=== PATIENT | male | born 1970 | race Hispanic/Latino ===

== ENCOUNTER 2017-08-18 15:01 | Emergency (ER) | payer OTHER, SELFPAY ==
[2017-08-18 15:23] LABS: #Eosinphils 0.4 thou/uL (0.0-0.7); #Lymphocytes 1.1 thou/uL (1.20-3.40); #Monocytes 0.5 thou/uL (0.11-0.59); #Neutrophils 6.4 thou/uL (1.40-6.50); %Basophils 0.4 % (0.0-1.0); %Eosinophils 5.3 % (0.0-10.0); %Lymphocytes 13.3 % (21.0-51.0); Hematocrit 50.6 % (42.0-52.0); Mean Platelet Volume 9.9 fL (7.4-10.4); White Blood Cell (WBC) Count 8.5 thou/uL (4.8-10.8)
[2017-08-18 15:45] LABS: ALT (SGPT) 34 U/L (8-55); AST (SGOT) 21 U/L (5-34); Alkaline Phosphatase 58 U/L (40-150); Anion Gap 13 mmol/L (10-20); BUN (Urea Nitrogen) 20 mg/dL (8.9-20.6); Bilirubin, Total 0.5 mg/dL (0.2-1.2); Calc. Creatinine Clearance 0 mL/min (70-130); Calcium 8.8 mg/dL (7.8-10.44); Carbon Dioxide 22 mmol/L (22-29); Chloride 105 mmol/L (98-107); Estimated GFR-MDRD Greater than 90; Globulin 3.2 g/dL (2.4-3.5); Protein, Total 7.4 g/dL (6.0-8.3)
[2017-08-18] MEDS ORDERED: Meclizine HCl 25 MG TAB ONE (16:28)
[2017-08-18 16:41] LABS: Bilirubin Negative (Negative); Blood, Urine Negative (Negative); Glucose, Urine (Dipstick) Negative (Negative); Ketone, Urine Negative (Negative); Nitrite Negative (Negative); Protein, Urine (Dipstick) Negative (Neg-Trace); Urobilinogen 0.2 mg/dL (0.2-1.0)
[2017-08-18 16:45] LABS: Troponin I Less than 0.010 ng/mL (< 0.028)
--- NOTE | 2017-08-18 16:59 | CT ---
HEAD CT WITHOUT CONTRAST: Date: 08/18/17 COMPARISON: None. HISTORY: Dizziness and nausea. TECHNIQUE: Serial axial CT imaging obtained at 5 mm intervals from the skull base through the vertex without co ntrast. FINDINGS: Imaged paranasal sinuses and mastoid air cells are well aerated. No displaced calvarial fracture. No intracranial hemorrhage, midline shift, mass effect, or ventricular enlargement. IMPRESSION: No acute findings. POS: [facility]
--- NOTE | 2017-08-29 14:20 | EKG ---
Test Reason : Blood Pressure : / mmHG Vent. Rate : 058 BPM Atrial Rate : 058 BPM P-R Int : 172 ms QRS Dur : 092 ms QT Int : 390 ms P-R-T Axes : 046 066 037 degrees QTc Int : 382 ms Sinus bradycardia Junctional ST depression, probably normal Borderline ECG Confirmed by YEN FELIX ([id number]), marketing editor ZUHAIR GORDON ([id number] on 08/29/2017 2:19:59 PM Referred By: Confirmed By:YEN FELIX
== END 2017-08-18 17:25 | disposition home or self-care (01) ==
LOC: ERS 15:01
DX: R42 Dizziness and giddiness (principal); Z79.899 Other long term (current) drug therapy
CPT/HCPCS: 36415; 70450; 80053; 81003; 82553; 84484; 85025; 93005; 96360

== ENCOUNTER 2018-02-04 10:12 | Emergency (ER) | payer OTHER, SELFPAY ==
[2018-02-04 11:12] LABS: #Eosinphils 0.1 thou/uL (0.0-0.7); #Lymphocytes 0.8 thou/uL (1.20-3.40); #Monocytes 0.4 thou/uL (0.11-0.59); #Neutrophils 4.9 thou/uL (1.40-6.50); %Basophils 0.3 % (0.0-1.0); %Monocytes 6.3 % (0.0-10.0); %Neutrophils 79.3 % (42.0-75.0); Hemoglobin 15.9 g/dL (14.0-18.0); Mean Corpuscular HGB CONC 33.7 g/dL (32.0-36.0); Mean Corpuscular Hemoglobin 28.5 pg (27.0-31.0); Mean Corpuscular Volume 84.6 fl (80.0-94.0); Mean Platelet Volume 10.4 fL (7.4-10.4); Platelet Count 149 thou/uL (130-400); RBC Distribution Width 11.5 % (11.5-14.5); Red Blood Cell (RBC) Count 5.59 mill/uL (4.70-6.10); White Blood Cell (WBC) Count 6.1 thou/uL (4.8-10.8)
[2018-02-04 11:26] LABS: Bilirubin Negative (Negative); Blood, Urine Negative (Negative); Clarity CLEAR (Clear); Glucose, Urine (Dipstick) Negative (Negative); Leukocyte Negative (Negative); Nitrite Negative (Negative); Protein, Urine (Dipstick) Negative (Neg-Trace); Specific Gravity, Urine 1.014 (1.002-1.036); Urobilinogen 0.2 mg/dL (0.2-1.0)
[2018-02-04 11:39] LABS: Albumin 4.5 g/dL (3.5-5.0); Calcium 9.5 mg/dL (7.8-10.44); Chloride 106 mmol/L (98-107); Sodium 136 mmol/L (136-145)
[2018-02-04 11:58] LABS: Alkaline Phosphatase 80 U/L (40-150); Anion Gap 8 mmol/L (10-20); BUN (Urea Nitrogen) 19 mg/dL (8.9-20.6); Bilirubin, Total 0.4 mg/dL (0.2-1.2); Calc. Creatinine Clearance 0 mL/min (70-130); Carbon Dioxide 26 mmol/L (22-29); Estimated GFR-MDRD Greater than 90; Globulin 3.2 g/dL (2.4-3.5); Glucose 110 mg/dL (70-105); Protein, Total 7.7 g/dL (6.0-8.3)
--- NOTE | 2018-02-04 12:00 | CT ---
CT ABDOMEN AND PELVIS WITHOUT IV CONTRAST: 02/04/2018 HISTORY: Bilateral flank pain and low back pain. COMPARISON: None available. FINDINGS: The lung bases are clear. There are subcentimeter, att-xvmbi-cl-characterize, hypodense lesions seen within the right hepatic l obe, laterally, as well as at the anterior aspect of the left hepatic lobe. The spleen, pancreas, bilateral adrenal glands, left kidney, and partially distended urinary bladder demonstrate a grossly normal nonenhanced CT appearance. There is a 2 to 3 mm nonobstructing superior pole right renal calculus. No additional renal or ureteral calculi are seen bilaterally, and there is no evidence of hydronephrosis. There is a normal caliber retrocecal appendix. Loops of small bowel are normal in caliber. No free fluid, fluid collection, or lymphadenopathy is seen in the abdomen or pelvis. There is fusion of the lateral masses of L5 with S1. IMPRESSION: 1. Tiny, nonobstructing right renal calculus. 2. No ureteral calculus is visualized, and there is no hydronephrosis. 3. No CT evidence of appendicitis. 4. Subcentimeter, djw-kynek-[id number]-characterize, hypodense lesions in each lobe of the liver. POS: [facility]
[2018-02-04 12:26] LABS: ALT (SGPT) 30 U/L (8-55); AST (SGOT) 20 U/L (5-34)
== END 2018-02-04 13:00 | disposition home or self-care (01) ==
LOC: ERS 10:12
DX: N20.0 Calculus of kidney (principal); F32.9 Major depressive disorder, single episode, unspecified; I10 Essential (primary) hypertension
CPT/HCPCS: 74176; 80053; 81003; 85025

== ENCOUNTER 2019-08-30 12:48 | Outpatient (CLI) | payer OTHER ==
--- NOTE | 2019-08-30 13:47 | ULT ---
CAROTID DOPPLER: Date: 08/30/19 PROVIDED CLINICAL HISTORY: Vertigo. FINDINGS: Main scale and color Doppler sonography with spectral analysis was performed of the extracranial garza tid system bilaterally. There is no evidence for a hemodynamically significant stenosis involving eit her internal carotid artery by peak systolic velocity or ratio criteria. Antegrade flow is seen in th e vertebral arteries. IMPRESSION: No sonographic evidence for hemodynamically significant internal carotid artery stenosis. POS: [facility]
== END 2019-08-30 12:49 | disposition home or self-care (01) ==
LOC: BICULT 12:48
PROVIDERS: ATTEND Psychiatry & Neurology Neurology
DX: R42 Dizziness and giddiness (principal)
CPT/HCPCS: 93880